=== PATIENT | female | born 1960 | race Caucasian/White ===

== ENCOUNTER 2017-07-15 08:07 | Inpatient (IN) | payer BC ==
[~2017-07-15] VITALS: Ht 162.6 cm; Wt 156.5 kg
[2017-07-15] MEDS: PROPOFOL 100 ML IV PRN ×4 (08:50→23:29)
[2017-07-15] MEDS ORDERED: PROPOFOL 10 MG/ML, 100ML IV ONE (09:00)
[2017-07-15] MEDS ORDERED: DOPAMINE/D5W PMX 250 ML IV ONE (09:00)
[2017-07-15] MEDS: DOPAMINE/D5W PMX 250 ML IV PRN ×2 (09:20→16:45)
[2017-07-15] MEDS ORDERED: SODIUM CHLORIDE FLUSH 10ML SYR IVF ONE (09:30)
[2017-07-15] MEDS ORDERED: MIDAZOLAM 1 MG/ML, 5ML IVP ONE (09:30)
[2017-07-15] MEDS ORDERED: ETOMIDATE 20 MG/10 ML IV ONE (09:30)
[2017-07-15] MEDS ORDERED: SUCCINYLCHOLINE 20 MG/ML, 10ML IVPush ONE (09:30)
[2017-07-15 09:44] LABS: HEMATOCRIT 50.6 % (34.6-47.8); HEMOGLOBIN 16.6 g/dL (11.7-16.4); WHITE BLOOD COUNT 8.8 x10^3/uL (3.4-10)
[2017-07-15 09:52] LABS: BLOOD UREA NITROGEN 10 mg/dL (7-18)
[2017-07-15 09:53] LABS: ABG COLLECTION SITE LEFT RADIAL; COLLATERAL CIRCULATION TESTING NORMAL
[2017-07-15 09:57] LABS: ASPARTATE AMINO TRANSFERASE 238 U/L (15-37)
[2017-07-15 09:58] LABS: IS PT STATUS REG ER OR PRE ER? YES
[2017-07-15] MEDS: NOREPINEPHRINE 4 MG in SODIUM CHLORIDE 0.9% 246 ML IV PRN ×2 (09:58→23:51)
[2017-07-15] MEDS ORDERED: DEX IV ONE (10:00)
[2017-07-15] MEDS ORDERED: ATROPINE SYRINGE 0.1 MG/ML, 10ML ONE ×2 (10:00→15:41)
[2017-07-15] MEDS ORDERED: DOPAMINE/D5W PMX 400 MG/250 ML ONE (10:00)
[2017-07-15] MEDS ORDERED: MAGNESIUM SULFATE 1 GM/2 ML ONE (10:00)
[2017-07-15] MEDS ORDERED: SODIUM BICARB 8.4%, 50ML SYRINGE ONE ×2 (10:00→14:40)
[2017-07-15] MEDS ORDERED: MIDAZOLAM 1 MG/ML, 2ML ONE (10:00)
[2017-07-15] MEDS ORDERED: FILTER 0.22 MICRON ONE (10:00)
[2017-07-15] MEDS ORDERED: EPINEPHRINE SYRINGE 0.1 MG/ML, 10ML ONE ×3 (10:00→15:57)
[2017-07-15] MEDS ORDERED: ETOMIDATE 20 MG/10 ML ONE (10:00)
[2017-07-15] MEDS ORDERED: DEXTROSE 5%, 250ML ONE (10:00)
[2017-07-15] MEDS ORDERED: LIDOCAINE 2% 100MG/5ML SYRINGE ONE (10:00)
[2017-07-15] MEDS ORDERED: DIGOXIN PED ONE (10:00)
[2017-07-15] MEDS ORDERED: LIDOCAINE IV ONE (10:00)
[2017-07-15] MEDS ORDERED: SUCCINYLCHOLINE 20 MG/ML, 10ML ONE (10:00)
[2017-07-15] MEDS ORDERED: AMIODARONE 50 MG/ML, 3ML ONE ×2 (10:00)
[2017-07-15] MEDS ORDERED: MIDAZOLAM HCL 25 MG in SODIUM CHLORIDE 0.9% 245 ML IV PRN ×2 (10:44→11:00)
[2017-07-15] MEDS ORDERED: MIDAZOLAM HCL IV PRN (11:00)
[2017-07-15] MEDS ORDERED: AMIODARONE IV ONE (11:00)
[2017-07-15] MEDS ORDERED: CEFTAZIDIME 1,000 MG in SODIUM CHLORIDE 0.9% 50 ML IVPB ONE (11:00)
[2017-07-15] MEDS ORDERED: SODIUM CHLORIDE 0.9% IV PRN (11:00)
[2017-07-15] MEDS ORDERED: DEXTROSE 5% IV ONE (11:00)
[2017-07-15] MEDS ORDERED: VANCOMYCIN PER PHARMACY MC ONE (11:00)
[2017-07-15] MEDS ORDERED: MAGNESIUM SULFATE PMX 2GM/50ML 50 ML IV ONE (11:00)
[2017-07-15] MEDS ORDERED: HEPARIN 5,000 UNITS/ML, 1ML IV PRN (11:30)
[2017-07-15] MEDS ORDERED: ASPIRIN 300 MG SUPP PR ONE (11:30)
[2017-07-15] MEDS ORDERED: HEPARIN 25,000 UNITS/500ML PMX 500 ML IV PRN (11:30)
[2017-07-15] MEDS ORDERED: HEPARIN 5,000 UNITS/ML, 1ML IV ONE (11:30)
[2017-07-15] MEDS ORDERED: PROPOFOL 100 ML IV ONE ×2 (11:41→14:28)
[2017-07-15] MEDS ORDERED: ONDANSETRON 2MG/ML, 2ML IVPush PRN (12:00)
[2017-07-15] MEDS ORDERED: morphine SULFATE 10 MG/ML, 1ML IVPush PRN (12:00)
[2017-07-15] MEDS ORDERED: OXYcodone IR 5MG TABLET PO PRN (12:00)
[2017-07-15] MEDS ORDERED: LORazepam 2 MG/ML, 1ML IVPush PRN (12:00)
[2017-07-15] MEDS ORDERED: ENALAPRILAT 1.25 MG/ML, 2ML IVPush PRN (12:00)
[2017-07-15] MEDS ORDERED: ACETAMINOPHEN 325 MG TABLET PO PRN (12:00)
[2017-07-15] MEDS ORDERED: POLYETHYLENE GLYCOL 17 GM PACKET PO PRN (12:00)
[2017-07-15] MEDS ORDERED: VANCOMYCIN 2,200 MG in SODIUM CHLORIDE 0.9% 500 ML IV ONE (12:00)
[2017-07-15 12:40] LABS: ABG COLLECTION SITE RIGHT RADIAL; COLLATERAL CIRCULATION TESTING NORMAL; FIO2 80 %
[2017-07-15 13:02] LABS: IS PT STATUS REG ER OR PRE ER? YES
[2017-07-15] MEDS ORDERED: TICAGRELOR 90 MG TABLET ONE (13:13)
[2017-07-15] MEDS ORDERED: VERAPAMIL 2.5 MG/ML, 2ML ONE (13:14)
[2017-07-15] MEDS ORDERED: HEPARIN 1,000 UNITS/ML, 10ML ONE (13:14)
[2017-07-15] MEDS ORDERED: BIVALIRUDIN 250 MG ONE ×2 (13:14→13:15)
[2017-07-15] MEDS ORDERED: LIDOCAINE 2%, 20ML ONE (13:14)
[2017-07-15] MEDS ORDERED: FENTANYL PF 250 MCG in SODIUM CHLORIDE 0.9% 250 ML IV PRN ×2 (13:30→20:32)
[2017-07-15] MEDS ORDERED: VECURONIUM 10 MG ONE (13:46)
[2017-07-15] MEDS ORDERED: FENTANYL PF 100 MCG/2ML ONE (13:59)
[2017-07-15] MEDS ORDERED: MIDAZOLAM 1 MG/ML, 5ML ONE (13:59)
[2017-07-15] MEDS ORDERED: PHENYLEPHRINE 10 MG/ML ONE (14:17)
[2017-07-15] MEDS ORDERED: EPINEPHRINE 2 MG in SODIUM CHLORIDE 0.9% 248 ML IV PRN (15:00)
[2017-07-15] MEDS: SODIUM CHLORIDE 0.9% 1,000 ML IV SCH ×2 (15:08→23:34)
[2017-07-15] MEDS ORDERED: SODIUM BICARBONATE 8.4% 150 MEQ in DEXTROSE 5% 1,000 ML IV SCH (16:00)
[2017-07-15] MEDS ORDERED: HEPARIN 25,000 UNITS in DEXTROSE 10% 495 ML IV PRN (17:00)
[2017-07-15] MEDS ORDERED: HEPARIN 25,000 UNITS in SODIUM CHLORIDE 0.45% 495 ML IV PRN (17:00)
[2017-07-15] MEDS ORDERED: DEXTROSE 20% IV PRN (17:00)
[2017-07-15] MEDS ORDERED: HEPARIN IV PRN ×2 (17:00)
[2017-07-15] MEDS ORDERED: DEXTROSE 30% IV PRN (17:00)
[2017-07-15] MEDS ORDERED: SODIUM CHLORIDE 0.9% 500 ML IV SCH (17:00)
[2017-07-15] MEDS: AMIODARONE 900 MG in DEXTROSE 5% 482 ML IV PRN (17:06)
[2017-07-15 17:14] LABS: DIFF TOTAL CELLS COUNTED 100 CELL DIFF; HEMATOCRIT 52.1 % (34.6-47.8); HEMOGLOBIN 16.8 g/dL (11.7-16.4); WHITE BLOOD COUNT 24.5 x10^3/uL (3.4-10)
[2017-07-15 17:17] LABS: ANISOCYTOSIS 1+; POLYCHROMASIA 1+; VERIFY COUNTS? YES
[2017-07-15 17:19] LABS: IS PT STATUS REG ER OR PRE ER? NO
[2017-07-15] MEDS ORDERED: LIDOCAINE-MPF 1%, 2ML ENDO PRN (18:30)
[2017-07-15] MEDS ORDERED: PHARMACY MAY ADJ FOR RENAL FX MC SCH (18:30)
[2017-07-15] MEDS: FUROSEMIDE 40 MG/4 ML IV SCH (18:53)
[2017-07-15 20:07] LABS: BLOOD UREA NITROGEN 15 mg/dL (7-18)
[2017-07-15] MEDS ORDERED: SODIUM PHOSPHATE 20 MMOL in SODIUM CHLORIDE 0.9% 250 ML IVPB PRN (20:32)
[2017-07-15] MEDS ORDERED: DEXMEDETOMIDINE 200 MCG in SODIUM CHLORIDE 0.9% 48 ML IV PRN (20:32)
[2017-07-15] MEDS ORDERED: MAGNESIUM SULFATE 1 GM in SODIUM CHLORIDE 0.9% 50 ML IVPB PRN (21:00)
[2017-07-15] MEDS ORDERED: VECURONIUM 10 MG IVPush PRN (21:00)
[2017-07-15] MEDS ORDERED: KSCALE TO 4.0 IV SCH (21:00)
[2017-07-15] MEDS ORDERED: POTASSIUM CHLORIDE 30 MEQ in SODIUM CHLORIDE 0.9% 100 ML IV ONE (21:00)
[2017-07-15] MEDS: KSCALE TO 4.0 IV SCH (21:10)
[2017-07-15] MEDS: TICAGRELOR 90 MG TABLET PO SCH (22:02)
[2017-07-15] MEDS: ATORVASTATIN 80 MG TABLET PO SCH (22:02)
[2017-07-15] MEDS: OCULAR LUBRICANT OPHTH OINT 3.5 GM EACHEYE SCH (22:16)
[2017-07-15] MEDS: EPINEPHRINE 4 MG in SODIUM CHLORIDE 0.9% 246 ML IV PRN (22:40)
[2017-07-15 22:44] LABS: PATH.CAST-FLAG NOT PRESENT; SPERM-FLAG NOT PRESENT; SRC-FLAG NOT PRESENT; XTAL-FLAG NOT PRESENT; YLC-FLAG NOT PRESENT
[2017-07-15 23:40] LABS: ABG COLLECTION SITE NOT DOCUMENTED
[2017-07-15] MEDS: REGULAR INSULIN 62.5 UNITS in SODIUM CHLORIDE 0.9% 249.375 ML IV PRN (23:47)
[2017-07-16] MEDS: KSCALE TO 4.0 IV SCH ×6 (01:00→21:35)
[2017-07-16] MEDS: PROPOFOL 100 ML IV PRN ×9 (01:17→23:29)
[2017-07-16] MEDS: SODIUM BICARBONATE 8.4% 150 MEQ in DEXTROSE 5% 1,000 ML IV SCH ×3 (02:04→18:52)
[2017-07-16 04:00] VITALS: BP 114/73
[2017-07-16 04:29] LABS: ABG COLLECTION SITE ARTERIAL LINE
[2017-07-16 04:30] LABS: HEMATOCRIT 45.1 % (34.6-47.8); HEMOGLOBIN 15.3 g/dL (11.7-16.4); WHITE BLOOD COUNT 27.9 x10^3/uL (3.4-10)
[2017-07-16] MEDS: ALBUTEROL/IPRATROPIUM 2.5MG/0.5MG, 3 ML INLINE SCH ×5 (04:30→20:30)
[2017-07-16 04:34] LABS: BLOOD UREA NITROGEN 19 mg/dL (7-18)
[2017-07-16 05:18] LABS: ASPARTATE AMINO TRANSFERASE 1316 U/L (15-37)
[2017-07-16] MEDS: OCULAR LUBRICANT OPHTH OINT 3.5 GM EACHEYE SCH ×3 (05:18→21:14)
[2017-07-16 05:21] LABS: IS PT STATUS REG ER OR PRE ER? NO
[2017-07-16] MEDS: REGULAR INSULIN 62.5 UNITS in SODIUM CHLORIDE 0.9% 249.375 ML IV PRN (05:25)
[2017-07-16] MEDS: EPINEPHRINE 4 MG in SODIUM CHLORIDE 0.9% 246 ML IV PRN ×3 (05:25→19:25)
[2017-07-16 05:54] LABS: DIFF TOTAL CELLS COUNTED 100 CELL DIFF
[2017-07-16 05:55] LABS: ANISOCYTOSIS 1+; VERIFY COUNTS? YES
[2017-07-16 05:56] LABS: LARGE PLATELETS 1+; POLYCHROMASIA 1+
[2017-07-16] MEDS ORDERED: ASPIRIN 325 MG TABLET EC PO SCH (06:00)
[2017-07-16] MEDS ORDERED: POTASSIUM CHLORIDE 30 MEQ in SODIUM CHLORIDE 0.9% 100 ML IV ONE (06:00)
[2017-07-16] MEDS: SODIUM CHLORIDE 0.9% 1,000 ML IV SCH ×3 (07:08→23:21)
[2017-07-16] MEDS ORDERED: REGULAR INSULIN 125 UNITS in SODIUM CHLORIDE 0.9% 248.75 ML IV PRN (07:30)
[2017-07-16] MEDS ORDERED: VANCOMYCIN PER PHARMACY MC PRN (08:00)
[2017-07-16] MEDS ORDERED: DEXTROSE 5% IV SCH (08:30)
[2017-07-16] MEDS ORDERED: HEPARIN IV SCH (08:30)
[2017-07-16] MEDS: DOCUSATE 50 MG/5 ML, 10ML UDC PO SCH (09:00)
[2017-07-16] MEDS ORDERED: VANCOMYCIN 2,000 MG in SODIUM CHLORIDE 0.9% 500 ML IV SCH (09:00)
[2017-07-16] MEDS ORDERED: SENNA/DOCUSATE TABLET PO SCH (09:00)
[2017-07-16] MEDS ORDERED: PHARMACOKINETIC CONSULTATION MC ONE (09:00)
[2017-07-16] MEDS: METRONIDAZOLE PMX 500MG/100ML 100 ML IV SCH ×3 (09:00→23:17)
[2017-07-16] MEDS ORDERED: PHARMACOKINETIC MONITORING MC PRN (09:00)
[2017-07-16] MEDS: CEFTRIAXONE PMX 1GM/50ML 50 ML IV SCH (09:01)
[2017-07-16] MEDS ORDERED: DOPAMINE/D5W PMX 250 ML ONE (09:43)
[2017-07-16] MEDS: ASPIRIN 81 MG TABLET EC PO SCH (09:50)
[2017-07-16] MEDS: SENNOSIDES 8.8 MG/5 ML ORAL SOL PO SCH (09:50)
[2017-07-16] MEDS: TICAGRELOR 90 MG TABLET PO SCH ×2 (09:50→21:14)
[2017-07-16] MEDS: FUROSEMIDE 40 MG/4 ML IV SCH ×2 (09:50→18:52)
[2017-07-16] MEDS ORDERED: VANCOMYCIN 2,000 MG in SODIUM CHLORIDE 0.9% 500 ML IV ONE (10:00)
[2017-07-16] MEDS: NOREPINEPHRINE 4 MG in SODIUM CHLORIDE 0.9% 246 ML IV PRN ×2 (10:38→19:25)
[2017-07-16] MEDS: DOPAMINE/D5W PMX 250 ML IV PRN (10:42)
[2017-07-16] MEDS ORDERED: AMIODARONE 150 MG in DEXTROSE 5% 100 ML IV ONE (11:00)
[2017-07-16] MEDS ORDERED: POTASSIUM CHLORIDE PMX 100 ML IV ONE ×4 (11:03→22:00)
[2017-07-16] MEDS: REGULAR INSULIN 250 UNITS in SODIUM CHLORIDE 0.9% 247.5 ML IV PRN ×4 (11:27→23:16)
[2017-07-16] MEDS: INSULIN DETEMIR 100 UNITS/ML, PEN SQ-INSULIN SCH (13:10)
[2017-07-16] MEDS: AMIODARONE 900 MG in DEXTROSE 5% 482 ML IV PRN (15:09)
[2017-07-16] MEDS ORDERED: POTASSIUM ACETATE IV ONE (19:30)
[2017-07-16] MEDS ORDERED: POTASSIUM CHLORIDE 20 MEQ in SODIUM CHLORIDE 0.9% 100 ML IV ONE (19:30)
[2017-07-16] MEDS ORDERED: SODIUM CHLORIDE 0.9% IV ONE (19:30)
[2017-07-16] MEDS: ATORVASTATIN 80 MG TABLET PO SCH (21:14)
[2017-07-17] MEDS: ALBUTEROL/IPRATROPIUM 2.5MG/0.5MG, 3 ML INLINE SCH ×3 (00:30→10:00)
[2017-07-17] MEDS ORDERED: POTASSIUM CHLORIDE PMX 100 ML IV ONE (01:00)
[2017-07-17] MEDS: INSULIN DETEMIR 100 UNITS/ML, PEN SQ-INSULIN SCH (01:18)
[2017-07-17] MEDS: NOREPINEPHRINE 8 MG in SODIUM CHLORIDE 0.9% 242 ML IV PRN ×3 (01:19→11:40)
[2017-07-17] MEDS: KSCALE TO 4.0 IV SCH ×3 (01:19→09:00)
[2017-07-17] MEDS: SODIUM BICARBONATE 8.4% 150 MEQ in DEXTROSE 5% 1,000 ML IV SCH (01:19)
[2017-07-17] MEDS: PROPOFOL 100 ML IV PRN ×3 (01:40→07:12)
[2017-07-17] MEDS: DOPAMINE/D5W PMX 250 ML IV PRN ×4 (01:41→11:44)
[2017-07-17] MEDS: EPINEPHRINE 4 MG in SODIUM CHLORIDE 0.9% 246 ML IV PRN ×2 (03:08→07:53)
[2017-07-17] MEDS: REGULAR INSULIN 250 UNITS in SODIUM CHLORIDE 0.9% 247.5 ML IV PRN ×3 (03:10→09:54)
[2017-07-17 03:27] LABS: ABG COLLECTION SITE NOT DOCUMENTED
[2017-07-17 03:28] LABS: HEMATOCRIT 40.2 % (34.6-47.8); HEMOGLOBIN 13.6 g/dL (11.7-16.4)
[2017-07-17 03:30] LABS: BLOOD UREA NITROGEN 25 mg/dL (7-18)
[2017-07-17 03:38] LABS: DIFF TOTAL CELLS COUNTED 100 CELL DIFF
[2017-07-17 03:41] LABS: ANISOCYTOSIS 1+; POLYCHROMASIA 1+; VERIFY COUNTS? YES
[2017-07-17 04:00] VITALS: BP 100/69
[2017-07-17] MEDS ORDERED: CALCIUM GLUCONATE 4.6 MEQ in SODIUM CHLORIDE 0.9% 50 ML IV ONE (04:00)
[2017-07-17 04:05] LABS: IS PT STATUS REG ER OR PRE ER? NO
[2017-07-17] MEDS: OCULAR LUBRICANT OPHTH OINT 3.5 GM EACHEYE SCH (05:18)
[2017-07-17] MEDS: METRONIDAZOLE PMX 500MG/100ML 100 ML IV SCH (06:18)
[2017-07-17] MEDS: SODIUM CHLORIDE 0.9% 1,000 ML IV SCH (07:08)
[2017-07-17] MEDS: FUROSEMIDE 40 MG/4 ML IV SCH (07:45)
[2017-07-17] MEDS: CEFTRIAXONE PMX 1GM/50ML 50 ML IV SCH (09:00)
[2017-07-17] MEDS: TICAGRELOR 90 MG TABLET PO SCH (09:00)
[2017-07-17] MEDS: DOCUSATE 50 MG/5 ML, 10ML UDC PO SCH (09:00)
[2017-07-17] MEDS: ASPIRIN 81 MG TABLET EC PO SCH (09:00)
[2017-07-17] MEDS: SENNOSIDES 8.8 MG/5 ML ORAL SOL PO SCH (09:00)
[2017-07-17] MEDS: AMIODARONE 900 MG in DEXTROSE 5% 482 ML IV PRN (09:29)
[2017-07-17] MEDS ORDERED: EPINEPHRINE 8 MG in SODIUM CHLORIDE 0.9% 242 ML IV PRN (09:30)
[2017-07-17] MEDS ORDERED: MORPHINE SULFATE 4 MG/ML, 1ML IVPush PRN (13:30)
== END 2017-07-17 13:41 | disposition expired | DRG 853 ==
LOC: ED 11:45 → EDIP 11:46 → ED 12:01 → CCU 15:32
PROVIDERS: ADMIT Internal Medicine; ATTEND Internal Medicine
PROC: 0T9B70Z Drainage of Bladder with Drainage Device, Via Natural or Artificial Opening (ICD-10-PCS; principal; 2017-07-15)
PROC: 02703DZ Dilation of Coronary Artery, One Artery with Intraluminal Device, Percutaneous Approach (ICD-10-PCS; 2017-07-15)
PROC: 02HA3RJ Insertion of Short-term External Heart Assist System into Heart, Intraoperative, Percutaneous Approach (ICD-10-PCS; 2017-07-15)
PROC: 5A0221D Assistance with Cardiac Output using Impeller Pump, Continuous (ICD-10-PCS; 2017-07-15)
PROC: 5A1945Z Respiratory Ventilation, 24-96 Consecutive Hours (ICD-10-PCS; 2017-07-15)
PROC: 02HV33Z Insertion of Infusion Device into Superior Vena Cava, Percutaneous Approach (ICD-10-PCS; 2017-07-15)
PROC: 0BH17EZ Insertion of Endotracheal Airway into Trachea, Via Natural or Artificial Opening (ICD-10-PCS; 2017-07-15)
PROC: 5A2204Z Restoration of Cardiac Rhythm, Single (ICD-10-PCS; 2017-07-15)
PROC: 4A023N7 Measurement of Cardiac Sampling and Pressure, Left Heart, Percutaneous Approach (ICD-10-PCS; 2017-07-15)
PROC: B2111ZZ Fluoroscopy of Multiple Coronary Arteries using Low Osmolar Contrast (ICD-10-PCS; 2017-07-15)
PROC: B2151ZZ Fluoroscopy of Left Heart using Low Osmolar Contrast (ICD-10-PCS; 2017-07-15)
PROC: 5A12012 Performance of Cardiac Output, Single, Manual (ICD-10-PCS; 2017-07-15)
PROC: 5A12012 Performance of Cardiac Output, Single, Manual (ICD-10-PCS; 2017-07-16)
PROC: 06HN33Z Insertion of Infusion Device into Left Femoral Vein, Percutaneous Approach (ICD-10-PCS; 2017-07-17)
PROC: B54CZZA Ultrasonography of Left Lower Extremity Veins, Guidance (ICD-10-PCS; 2017-07-17)
DX: A41.9 Sepsis, unspecified organism (principal); I21.09 ST elevation (STEMI) myocardial infarction involving other coronary artery of anterior wall; I26.99 Other pulmonary embolism without acute cor pulmonale; J96.01 Acute respiratory failure with hypoxia; N17.0 Acute kidney failure with tubular necrosis; J18.9 Pneumonia, unspecified organism; Z68.43 Body mass index [BMI] 50.0-59.9, adult; Z99.11 Dependence on respirator [ventilator] status; I49.01 Ventricular fibrillation; E66.01 Morbid (severe) obesity due to excess calories; R57.0 Cardiogenic shock; E78.5 Hyperlipidemia, unspecified; E87.6 Hypokalemia; J45.20 Mild intermittent asthma, uncomplicated; I25.10 Atherosclerotic heart disease of native coronary artery without angina pectoris; I49.3 Ventricular premature depolarization; Z51.5 Encounter for palliative care; Z66 Do not resuscitate; Z79.4 Long term (current) use of insulin; Z79.51 Long term (current) use of inhaled steroids; Z82.0 Family history of epilepsy and other diseases of the nervous system; Z82.3 Family history of stroke; Z87.891 Personal history of nicotine dependence; Z83.3 Family history of diabetes mellitus; Z82.49 Family history of ischemic heart disease and other diseases of the circulatory system
CPT/HCPCS: 31500; 33990; 36415; 36556; 36600; 51702; 71010; 80048; 80053; 80061; 80202; 81001; 82803; 82962; 83036; 83605; 83735; 83880; 84100; 84132; 84145; 84443; 84478; 84484; 85025; 85347; 85520; 85610; 85730; 86803; 87040; 87070; 87081; 87086; 87205; 87340; 92950; 93005; 93306; 93308; 93458; 93970; 94002; 94003; 94640; 96365; 96366; 99156; 99157; 99292; C1769; C1894; C9600; J0461; J0583; J0610; J0696; J0713; J1160; J1265; J1644; J1815; J1940; J2001; J2250; J2704; J3010; J3370; J3475; J3480; J3490; J7060; J7070; J7620; C1725; C1874; C1887; J0171; J0282; J0330; J2060; J2270; J2370; J7040; J7050; Q9967